=== PATIENT | female | born 1990 | race Caucasian/White ===

== ENCOUNTER 2016-07-29 21:32 | Emergency (ER) | payer BC, OTHER ==
[2016-07-29 21:41] VITALS: BP 123/61; PULSE 99; TEMP 98.4; BMI 28.5
[2016-07-29] MEDS ORDERED: SODIUM CHLORIDE 0.9% 1000 ML INFUS.BAG IV ONE (22:07)
[2016-07-29] MEDS ORDERED: DICYCLOMINE HCL 20 MG TABLET PO ONE (22:09)
[2016-07-29] MEDS ORDERED: LOPERAMIDE HCL 1 MG/5 ML UNIT DOSE CUP PO ONE (22:10)
[2016-07-29] MEDS ORDERED: DICYCLOMINE HCL 10 MG CAPSULE ONE (22:11)
[2016-07-29] MEDS ORDERED: LOPERAMIDE HCL 2 MG CAPSULE ONE (22:31)
[2016-07-29] MEDS ORDERED: LOPERAMIDE HCL 2 MG CAPSULE PO ONE (22:38)
[2016-07-29 22:55] LABS: BASOPHIL 0.3 % (0-2.0); EOSINOPHIL 2.1 % (0-4.5); MCH 29.4 pg (25.7-33.7); MCHC 33.6 g/dl (32.0-36.0); MEAN CELL VOLUME 87.4 fl (80-96); MEAN PLT VOLUME 8.1 fl (7.5-11.1); NEUTROPHILS 63.9 % (42.8-82.8); PLATELET COUNT 205 K/MM3 (134-434); RDW 12.9 % (11.6-15.6); WHITE BLOOD COUNT 4.1 K/mm3 (4.0-10.0)
[2016-07-29 23:39] LABS: ALBUMIN 3.9 g/dl (3.4-5.0); ANION GAP 8 (8-16); BILIRUBIN,TOTAL 0.6 mg/dL (0.2-1.0); CALCIUM 8.5 mg/dL (8.5-10.1); CO2 26 mmol/L (21-32); CREATININE 0.6 mg/dL (0.55-1.02); GLUCOSE,RANDOM 94 mg/dL (74-106); SGOT/AST 14 U/L (15-37); SGPT/ALT 16 U/L (12-78); TOT PROT 7.2 g/dl (6.4-8.2)
[2016-07-29 23:54] LABS: ALK PHOS 63 U/L (45-117)
--- NOTE | 2016-07-30 00:50 | PDOC ---
History of Present Illness - General Chief Complaint: Diarrhea Stated Complaint: DIARRHEA Time Seen by Provider: 07/29/16 21:48 - History of Present Illness Initial Comments: 07/30/16 01:47 CHIEF COMPLAINT: diarrhea HISTORY OF PRESENT ILLNESS: 26 yo F 5 wk F with no PMH presents to ED with c/o abd cramping and diarrhea. Patient reports that she just returned from [place] 2 days ago and has had "diarrhea like crazy every day since I returned. She reports nausea but denies any vomiting. Patient also reports that she is terminating her and "took the first pill today." No recent travel or sick contacts. PAST MEDICAL HISTORY: Denies past medical history FAMILY HISTORY: Denies SOCIAL HISTORY: Denies tobacco, alcohol, illicit drug use. SURGICAL HISTORY: Denies ALLERGIES: No known drug allergies REVIEW OF SYSTEMS General/Constitutional: Denies fever or chills. Denies weakness, weight change. HEENT: Denies change in vision. Denies ear pain or discharge. Denies sore throat. Cardiovascular: Denies chest pain or shortness of breath. Respiratory: Denies cough, wheezing, or hemoptysis. Gastrointestinal: Abdominal pain today. Nausea, diarrhea x 3 days. Denies constipation. Denies rectal bleeding. Genitourinary: Denies dysuria, frequency, or change in urination. Musculoskeletal: Denies joint or muscle swelling or pain. Denies neck or back pain. Skin and breasts: Denies rash or easy bruising. Neurologic: Denies headache, vertigo, loss of consciousness, or loss of sensation. PHYSICAL EXAM General Appearance: Well-appearing, appropriately dressed. No apparent distress. HEENT: EOMI, PERRLA Neck: Supple. Trachea midline. No tenderness, rigidity, carotid bruit, stridor , lymphadenopathy, or thyromegaly. Respiratory/Chest: Lungs CTAB. Cardiovascular: RRR. S1, S2. Gastrointestinal/Abdominal: Hyperactive bowel sounds, no TTP. Abdomen soft, non -distended. No tenderness or rebound tenderness. No organomegaly, pulsatile mass, guarding, hernia, hepatomegaly, splenomegaly. Musculoskeletal/Extremities: Normal inspection. FROM of all extremities, normal capillary refill. Pelvis Stable. No CVA tenderness. No tenderness to extremities, pedal edema, swelling, erythema or deformity. Integumentary: Appropriate color, dry, warm. No cyanosis, erythema, jaundice or rash Neurologic: heating repair technician II-XII intact. Fully oriented, alert. Appropriate mood/affect. Motor strength 5/5. No appreciable EOM palsy, facial droop or sensory deficit. 07/30/16 01:54 Past History - Past Medical History Allergies/Adverse Reactions: Allergies Allergy/AdvReac Type Severity Reaction Status Date / Time No Known Allergies Allergy Verified 07/29/16 21:39 Home Medications: Ambulatory Orders Ciprofloxacin [Cipro -] 500 mg PO Q12H #6 tablet 07/30/16 Loperamide HCl/Simethicone [Imodium Multi-Symptom Rel Cplt] 1 each PO TID PRN # 9 tablet 07/30/16 Ondansetron [Zofran *Odt*] 8 mg SL TID PRN #21 od.tablet 07/30/16 - Reproductive History Is Patient Now?: Yes (5 weeks) (#): 3 Para: 2 Cervical CA: No Dysfunctional Uterine Bleeding: No Ectopic : No Endometrial CA: No Polycystic Ovaries: No Therapeutic (s) & number: (currently in process) Tubal Ligation: No Spontaneous : 0 - Psycho/Social/Smoking Cessation Hx Suicidal Ideation: No Smoking History: Never smoked *Physical Exam - Vital Signs Last Vital Signs Temp Pulse Resp BP Pulse Ox 98.4 F 99 H 18 123/61 98 07/29/16 21:39 07/29/16 21:39 07/29/16 21:39 07/29/16 21:39 07/29/16 21:39 ED Treatment Course - LABORATORY CBC & Chemistry Diagram: 07/29/16 18:56 07/29/16 18:56 - ADDITIONAL ORDERS Additional order review: Laboratory Results 07/29/16 18:56 Sodium 138 Potassium 3.9 Chloride 104 Carbon Dioxide 26 Anion Gap 8 BUN 11 Creatinine 0.6 Creat Clearance w eGFR > 60 Random Glucose 94 Calcium 8.5 Total Bilirubin 0.6 AST 14 L ALT 16 Alkaline Phosphatase 63 Total Protein 7.2 Albumin 3.9 Lipase 135 Beta HCG, Quant 9449.2 07/29/16 18:56 RBC 4.34 MCV 87.4 MCHC 33.6 RDW 12.9 MPV 8.1 Neutrophils % 63.9 Lymphocytes % 22.1 Monocytes % 11.6 H Eosinophils % 2.1 Basophils % 0.3 - RADIOLOGY Radiology Studies Ordered: Category Date Time Status TRANSVAGINAL US PREG [US] Stat Ultrasound 07/30/16 00:09 Ordered - Medications Given in the ED: ED Medications Discontinued Medications Generic Name Dose Route Start Last Admin Trade Name Eugenia PRN Reason Stop Dose Admin Dicyclomine HCl 20 mg 07/29/16 22:09 07/29/16 22:27 Bentyl - PO 07/29/16 22:10 20 mg ONCE ONE Administration Loperamide HCl 1 mg 07/29/16 22:10 07/29/16 22:38 Imodium Liquid - PO 07/29/16 22:11 Not Given ONCE ONE Loperamide HCl 2 mg 07/29/16 22:38 07/29/16 22:38 Imodium - PO 07/29/16 22:39 2 mg NOW ONE Administration Sodium Chloride 1,000 ml 07/29/16 22:07 07/29/16 22:27 Normal Saline - IV 07/29/16 22:08 1,000 ml ONCE ONE Administration Medical Decision Making - Medical Decision Making 07/30/16 03:13 26 yo F 5 wk F currently undergoing medical presents to ED with c/o abd pain and diarrhea. -CBC, CMP, beta hcg -Bentyl, Loperamide, IVF -TV U/S r/u ectopic Labs unremarkable. Diarrhea likely secondary to traveler's diarrhea. U/S results: Ultrasound : 10.2centimeters in length. There is a single IUP with estimated gestational age of 5weeks and 6days. There is no cardiac motion. There is no subchorionic bleed. The right ovary measures 3.6centimeters in length and appears normal. The left ovary measures 3.3centimeters in length and contains a small complex cyst, likely a corpus luteum. There is a small to moderate amount of free fluid. Pelvic duplex: There is normal arterial and venous flow in both ovaries. IMPRESSION: Early IUP with pole but no cardiac motion. Recommend follow sonography to ensure viability. Small complex left ovarian cyst may be a corpus luteum. Small to moderate amount of pelvic free fluid could be due to partial cyst collapse or non-gynecologic pathology. Read by: John Sidhu MD Patient reassessed, states she is feeling better at this time. Will d/c to home with rx for , Cipro, Zofran and Loperamide. Advised patient to take medications as prescribed and f/u with [facility] for continued monitoring of her medical . Patient verbalized understanding and agrees to plan. 07/30/16 03:20 *DC/Admit/Observation/Transfer Diagnosis at time of Disposition: Abdominal pain Qualifiers: Abdominal location: unspecified location Qualified Code(s): R10.9 - Unspecified abdominal pain Diarrhea Qualifiers: Diarrhea type: presumed infectious Qualified Code(s): A09 - Infectious gastroenteritis and colitis, unspecified - Discharge Dispostion Disposition: HOME Condition at time of disposition: Stable Admit: No - Prescriptions Prescriptions: Ciprofloxacin [Cipro -] 500 mg PO Q12H #6 tablet Loperamide HCl/Simethicone [Imodium Multi-Symptom Rel Cplt] 1 each PO TID PRN # 9 tablet PRN Reason: Diarrhea Ondansetron [Zofran *Odt*] 8 mg SL TID PRN #21 od.tablet PRN Reason: Nausea And/Or Vomiting - Patient Instructions Printed Discharge Instructions: DI for Diarrhea and Traveler's Diarrhea -- Adult Additional Instructions: Please take medication as prescribed; be sure to complete the ENTIRE course of antibiotics for your traveler's diarrhea. Please drink plenty of fluids to stay hydrated. Please continue to follow up with [facility] regarding your medical . As discussed, if you experience severe bleeding (more than one soaked pad an hour) and become dizzy or lightheaded, develop palpitations, or develop any new or worsening symptoms, please return to the ER immediately. - Post Discharge Activity Work/School Note: Back to Work
== END 2016-07-30 01:59 | disposition home or self-care (01) ==
LOC: JER 21:32
DX: A09 Infectious gastroenteritis and colitis, unspecified (principal); Z3A.01 Less than 8 weeks gestation of pregnancy
CPT/HCPCS: 36415; 76817-TC; 80053; 83690; 84702; 85025; 99282-25

== ENCOUNTER 2016-09-28 23:33 | Emergency (ER) | payer BC, OTHER ==
[2016-09-28 23:53] VITALS: TEMP 98.1; BMI 27.8
[2016-09-29 00:13] LABS: MCH 30.4 pg (25.7-33.7); MCHC 34.4 g/dl (32.0-36.0); MEAN CELL VOLUME 88.2 fl (80-96); MEAN PLT VOLUME 8.3 fl (7.5-11.1); PLATELET COUNT 263 K/MM3 (134-434); RDW 13.2 % (11.6-15.6); WHITE BLOOD COUNT 5.5 K/mm3 (4.0-10.0)
--- NOTE | 2016-09-29 00:35 | PDOC ---
History of Present Illness - General History Source: Patient Exam Limitations: No Limitations - History of Present Illness Initial Comments: 09/29/16 01:03 The patient is a 26 year old female () with no significant past medical history who presents to the ED with complaints of vaginal bleeding for an hour. The patient a sudden onset of vaginal bleeding producing large blood clots. She also reports lower abdominal cramping associated with present symptoms. Patient reports she recently got the control implant inserted 1 month ago. Patient states she typically gets normal menstrual period and notes her last period was towards the end of last month. Denies fever or chills. Denies nausea, vomiting, or diarrhea. Denies chest pain or shortness of breath. Denies any other symptoms. <Diamond Norwood - Last Filed: 09/29/16 01:57> <John Rosas - Last Filed: 09/29/16 02:07> - General Chief Complaint: Vaginal Bleeding Stated Complaint: EXCESSIVE BLEEDING Time Seen by Provider: 09/28/16 23:50 Past History <Diamond Norwood - Last Filed: 09/29/16 01:57> - Reproductive History (#): 3 Para: 2 Cervical CA: No Dysfunctional Uterine Bleeding: No Ectopic : No Endometrial CA: No Polycystic Ovaries: No Therapeutic (s) & number: (currently in process) Tubal Ligation: No Spontaneous : 0 - Psycho/Social/Smoking Cessation Hx Suicidal Ideation: No Smoking History: Never smoked Have you smoked in the past 12 months: No Information on smoking cessation initiated: No Hx Alcohol Use: No Drug/Substance Use Hx: No <John Rosas - Last Filed: 09/29/16 02:07> - Past Medical History Allergies/Adverse Reactions: Allergies Allergy/AdvReac Type Severity Reaction Status Date / Time No Known Allergies Allergy Verified 09/28/16 23:46 Home Medications: Ambulatory Orders Ondansetron [Zofran *Odt*] 8 mg SL TID PRN #21 od.tablet 07/30/16 Review of Systems - Review of Systems Able to Perform ROS?: Yes Comments:: 09/29/16 01:03 CONSTITUTIONAL: No reported: Fever, Chills, Diaphoresis, Generalized Weakness, Malaise, Loss of Appetite HEENT: No reported: Rhinorrhea, Nasal Congestion, Throat Pain, Throat Swelling, Difficulty Swallowing, Mouth Swelling, Ear Pain, Eye Pain, Visual Changes CARDIOVASCULAR: No reported: Chest Pain, Syncope, Palpitations, Irregular Heart Rate, Lightheadedness, Peripheral Edema RESPIRATORY: No reported: Cough, Shortness of Breath, SOB with Exertion, Orthopnea, Wheezing , Stridor, Hemoptysis GASTROINTESTINAL: No reported: Abdominal pain, Abdominal Distension, Nausea, Vomiting, Diarrhea, Constipation, Melena, Hematochezia GENITOURINARY: + vaginal bleeding No reported: Dysuria, Frequency, Urgency, Hesitancy, Flank Pain, Genital Pain MUSCULOSKELETAL: No reported: Myalgia, Arthralgia, Joint Swelling, Back pain, Neck Pain SKIN: No reported: Rash, Itching, Pallor HEMEATOLOGIC/IMMUNOLOGIC: No reported: Easy Bleeding, Easy Bruising, Lymphadenopathy, Frequent infections ENDOCRINE: No reported: Unexplained Weight Gain, Unexplained Weight Loss, Heat Intolerance , Cold Intolerance NEUROLOGIC: No reported: Headache, Focal Weakness, Paresthesias, Vertigo, Lightheadedness, Unsteady Gait, Seizure, Mental Status Changes, Incontinence PSYCHIATRIC: No reported: Anxiety, Depression All Other Systems: Reviewed and Negative <Diaomnd Norwood - Last Filed: 09/29/16 01:57> *Physical Exam - Vital Signs Last Vital Signs Temp Pulse Resp BP Pulse Ox 98.1 F 65 20 136/81 100 09/28/16 23:47 09/28/16 23:47 09/28/16 23:47 09/28/16 23:47 09/28/16 23:47 - Physical Exam Comments: 09/29/16 01:03 GENERAL: The patient is awake, alert, and fully oriented, Nontoxic - in no acute distress. HEAD: Normocephalic, atraumatic. EYES: extraocular movements intact, sclera anicteric, conjunctiva clear. ENT: Normal voice, Moist mucous membranes. NECK: Normal range of motion, supple LUNGS: Breath sounds equal, clear to auscultation bilaterally. No wheezes, no rhonchi, no rales. HEART: Regular rate and rhythm, without murmur, rub or gallop. ABDOMEN: Soft, nontender, normoactive bowel sounds. No guarding, no rebound.No CVA tenderness Pelvic: + diffuse superpubic tenderness, blood clotts in vaginal vault, unable to visualize os due to anterior uterus. EXTREMITIES: Normal range of motion, no edema. NEUROLOGICAL: No facial assymetry, Normal speech, PSYCH: Normal mood, normal affect. SKIN: Warm, Dry, normal turgor, <Diamond Norwood - Last Filed: 09/29/16 01:57> - Vital Signs Last Vital Signs Temp Pulse Resp BP Pulse Ox 98.1 F 65 20 136/81 100 09/28/16 23:47 09/28/16 23:47 09/28/16 23:47 09/28/16 23:47 09/28/16 23:47 <John Rosas - Last Filed: 09/29/16 02:07> ED Treatment Course - LABORATORY CBC & Chemistry Diagram: 09/29/16 00:01 - ADDITIONAL ORDERS Additional order review: Laboratory Results 09/29/16 00:01 Serum , Qual Positive 09/29/16 00:01 RBC 4.32 MCV 88.2 MCHC 34.4 RDW 13.2 MPV 8.3 - RADIOLOGY Radiograph Interpretation: 09/29/16 01:57 EXAM: US PELVIC IMPRESSION: complex thickened endometrium suggesting retained blood products. There is not intrauterine gestation. No adnexal mass. Pelvic fluid is nonspecific. In the setting of a positive test in the absence of an intrauterine gestation, ectopic is a differential consideration; although no adnexal masses. Correlation with clinical dates and beta HCG levels is recommended. Reported by: Imaging diamond setter. <Diamond Norwood - Last Filed: 09/29/16 01:57> - LABORATORY CBC & Chemistry Diagram: 09/29/16 00:01 - ADDITIONAL ORDERS Additional order review: Laboratory Results 09/29/16 00:01 Serum , Qual Positive 09/29/16 00:01 RBC 4.32 MCV 88.2 MCHC 34.4 RDW 13.2 MPV 8.3 <John Rosas - Last Filed: 09/29/16 02:07> Medical Decision Making - Medical Decision Making 09/29/16 01:[address] Taylor at 01:54. <Diamond Norwood - Last Filed: 09/29/16 01:57> - Medical Decision Making 09/29/16 00:41 26y F A3 presents with Vag bleeding and cramping since this evening, pt notes large clots from when she was taking a shower, states she got an implantable contraceptive a month ago. States her last menses was about 3 weeks ago but she does not know exact date. On exam pt has lare clots in the vag vault, unable to visualize her os due to discomfort (very anterior uterus). blood work shows +serum preg will r/o ectopic with US awaiting beta hcg A portion of this note was documented by scribe services under my direction. I have reviewed the details of the note, within reason, and agree with the documentation with the following case summary and management plan written by me 09/29/16 01:53 beta 55 blood type A+, rhogam not necessary The pts US reveals thickened endmetrium, no IUP noted no adnexal masses suspect early or termination pt feeling improved, no bleeding currently will need repeat beta and repeat US in 48 hrs return precautions were discussed case dw dr. land agree with managment I discussed the physical exam findings, ancillary test results and final diagnoses with the patient. I answered all of the patient's questions. The patient was satisfied with the care received and felt comfortable with the discharge plan and treatment plan. The patient will call their primary care physician within 24 hours to arrange follow-up and will return to the Emergency Department with any new, persistent or worsening symptoms. <John Rosas - Last Filed: 09/29/16 02:07> *DC/Admit/Observation/Transfer - Attestations Scribe Attestion: 09/29/16 01:03 Documentation prepared by Diamond Norwood, acting as medical practitioners for John Rosas MD <Diamond Norwood - Last Filed: 09/29/16 01:57> - Discharge Dispostion Admit: No <John Rosas - Last Filed: 09/29/16 02:07> Diagnosis at time of Disposition: Threatened in early - Discharge Dispostion Disposition: HOME Condition at time of disposition: Improved - Referrals Referrals: Stephen Land MD [Staff Physician] - - Patient Instructions Printed Discharge Instructions: DI for Miscarriage Additional Instructions: Return in 48 hours to have your lab work and Ultrasound repeated Your Beta HCG today was 55 If you have worsening pain, vaginal bleeding, dizziness, or other concerns. Print Language: BENINESE
[2016-09-29] MEDS ORDERED: ACETAMINOPHEN 325 MG TABLET (FP) PO ONE (00:37)
[2016-09-29] MEDS ORDERED: ACETAMINOPHEN 325 MG TABLET (FP) ONE (02:34)
[2016-09-29 02:38] VITALS: BP 113/56; PULSE 73
== END 2016-09-29 02:38 | disposition home or self-care (01) ==
LOC: JER 23:33
DX: O20.0 Threatened abortion (principal); Z3A.01 Less than 8 weeks gestation of pregnancy
CPT/HCPCS: 36415; 76801-TC; 84702; 84703; 85027; 86850; 86900; 86901; 99282-25